=== PATIENT | male | born 1980 | race Caucasian/White ===

== ENCOUNTER → 2019-07-08 | Emergency (ER) | payer SELFPAY ==
[~2019-07-08] VITALS: Ht 188 cm; Wt 109.1 kg
[~2019-07-08] MED LIST: CARDIZEM LA180 MG PO
[2019-07-08 23:49] VITALS: Ht 188 cm; Wt 109.1 kg
[2019-07-09 00:01] LABS: BASOPHILS 0.3 % (0-2); EOSINOPHILS 3.1 % (0-7); HEMOGLOBIN 14.5 g/dL (13.5-17.5); IMMATURE GRANULOCYTES 0.3 % (0-5); LYMPHOCYTES 39.6 % (15-50); MCH 30.6 pg (26.0-34.0); MCHC 34.5 g/dL (31.0-37.0); MCV 88.6 fL (80.0-100.0); MEAN PLATELET VOLUME 8.8 fL (7.4-10.4); MONOCYTES 8.9 % (2-11); NEUTROPHILS 47.8 % (40-80); PLATELET COUNT 316 10x3/uL (130-400); RBC 4.74 10x6/uL (4.20-6.10); RDW 12.6 % (11.5-14.5); WBC 6.5 10x3/uL (4.8-10.8)
[2019-07-09 00:13] LABS: APTT 29.6 SECONDS (22.8-39.4); INR 0.94 (0.85-1.17); PROTIME 12.1 SECONDS (11.6-15.0)
[2019-07-09 00:24] LABS: APPEARANCE CLEAR (CLEAR); BILIRUBIN NEGATIVE (NEGATIVE); COLOR YELLOW (YELLOW); GLUCOSE NEGATIVE (NEGATIVE); KETONE NEGATIVE (NEGATIVE); NITRITE NEGATIVE (NEGATIVE); PROTEIN NEGATIVE (NEGATIVE); UROBILINOGEN NORMAL (NORMAL)
[2019-07-09 00:25] LABS: ALBUMIN 3.8 g/dL (3.4-5.0); ALKALINE PHOSPHATASE 96 U/L (46-116); ALT (SGPT) 55 U/L (10-68); BILIRUBIN - TOTAL 0.22 mg/dL (0.2-1.3); CALC OSMOLALITY 280 mosm/kg (275-300); CALCIUM 9.4 mg/dL (8.5-10.1); CHLORIDE - SERUM 102 mmol/L (98-107); CKMB 6.3 U/L (0.0-3.6); CREATINE KINASE 277 UL (21-232); CREATININE - SERUM 1.2 mg/dL (0.6-1.3); GLUCOSE 107 mg/dL (74-106); MAGNESIUM - SERUM 2.1 mg/dL (1.8-2.4); POTASSIUM - SERUM 3.7 mmol/L (3.5-5.1); PROTEIN - SERUM 7.9 g/dL (6.4-8.2); SODIUM 139 mmol/L (136-145); TROPONIN-I < 0.017 ng/mL (0.000-0.060); UREA NITROGEN 20 mg/dL (7-18); eGFR NON AFRICAN AMERICAN 71 mL/min (90-120)
[2019-07-09 00:37] LABS: UDS - AMPHET POSITIVE QUAL (NEGATIVE); UDS - BARB NEGATIVE QUAL (NEGATIVE); UDS - BENZO NEGATIVE QUAL (NEGATIVE); UDS - COCAINE NEGATIVE QUAL (NEGATIVE); UDS - OPIATE NEGATIVE QUAL (NEGATIVE); UDS - PCP NEGATIVE QUAL (NEGATIVE); UDS - THC NEGATIVE QUAL (NEGATIVE)
[2019-07-09 00:40] LABS: T4 THYROXIN - FREE 1.08 ng/dL (0.76-1.46); T4 THYROXINE 7.6 ug/dL (4.7-13.3)
[2019-07-09 03:52] LABS: CKMB 5.6 U/L (0.0-3.6); CREATINE KINASE 269 UL (21-232); TROPONIN-I < 0.017 ng/mL (0.000-0.060)
[2019-07-09 04:34] VITALS: BP 136/73
== END | disposition home or self-care (01) ==
LOC: D.ER 23:44
PROVIDERS: Emergency Medicine
DX: F15.90 Other stimulant use, unspecified, uncomplicated (principal); R00.0 Tachycardia, unspecified

== ENCOUNTER 2019-10-26 12:11 | Observation (INO) | payer SELFPAY ==
[2019-10-26] VITALS (8 sets, daily range): BP systolic 83–139; BP diastolic 60–75; Ht 188 cm; Wt 109.5 kg
[~2019-10-26] VITALS: Ht 188 cm; Wt 109.5 kg
--- NOTE | ~2019-10-26 | EC ---
PATIENT:GENO MIRZA DATE OF SERVICE: 10/26/19 SEX: M MEDICAL RECORD: [id number] DATE OF : [birth year] LOCATION:D.M2 D.212 AGE OF PATIENT: 38 ADMISSION DATE: 10/26/19 REFERRING PHYSICIAN: INTERPRETING PHYSICIAN: FRED LAINEZ MD ECHOCARDIOGRAM REPORT ECHO CHARGES 4 ECHO COMPLETE Date: 10/27/19 CLINICAL DIAGNOSIS: CP, Q WAVE WAS NOTED ON EKG, METH USE ECHOCARDIOGRAPHIC MEASUREMENTS (adult normal given) AC root (d.<3.7cm) 2.9 cm LV Septum d (<1.2 cm> 0.8 cm Valve Excursion 1.6 cm LV Septum (systole) 1.2 cm Left Atria (s.<4.0cm> 3.5 cm LVPW d(<1.2cm) 1.1 cm RV (d.<2.3cm) 2.6 cm LVPW (sytole) 1.3 cm LV diastole(<5.6CM) 4.9 cm MV E-F(>70mm/sec) cm LV systole 3.5 cm LVOT Diameter 2.1 cm MV exc.(>10mm) cm Est.ejection fraction (50-75%) % DOPPLER: LVIT cm/sec A 109 cm/sec E 87 cm/sec LA cm/sec RVSP 26.7 mmHg LVOT 125 cm/sec AOP1/2T m/s Asc. Ao 122 cm/sec RVOT 65 cm/sec RA cm/sec PA 90 cm/sec AV Gradient Peak 6.0 mmHg AV Mean 2.7 mmHg AV Area 3.2 cm MV Gradient Peak 6.1 mmHg MV Mean 3.5 mmHg MV Area cm COMMENTS: Correctional Program Specialist: Rachel AGEE Warehouse Distribution Specialist: 3 Dr. Hewitt TAPE# PACS Pericardial Effusion N DATE OF SERVICE: Adequate 2D, color flow and spectral Doppler, and M-Mode. No LVH. LV internal dimension is normal. Wall motion is normal. EF is greater than or equal to 55%. Aortic valve is tricuspid. No evidence of stenosis by Doppler interrogation. Left atrium is normal. Mitral valve shows no prolapse. Trivial MR. Right-sided chambers are grossly normal. Trivial TR. TRANSINT:[id number] Voice Confirmation ID: [id number] DOCUMENT ID: [id number] ECHOCARDIOGRAM REPORT [id number] GENO MIRZA GREGORY A MD CC: [id number] DICTATION DATE: 10/30/19 1349 OPERATOR COMMAND SUPPORT SYSTEMS: 10/30/19 193 DIS IN 10/27/19 [id number] [place] [address]
[2019-10-26 12:57] LABS: HEMATOCRIT 49.3 % (42.0-54.0); HEMOGLOBIN 16.2 g/dL (13.5-17.5); MCH 30.2 pg (26.0-34.0); MCHC 32.9 g/dL (31.0-37.0); MCV 91.8 fL (80.0-100.0); MEAN PLATELET VOLUME 9.7 fL (7.4-10.4); RBC 5.37 10x6/uL (4.20-6.10); RDW 12.7 % (11.5-14.5); WBC 2.7 10x3/uL (4.8-10.8)
[2019-10-26 13:04] LABS: PLATELET COUNT 225 10x3/uL (130-400)
[2019-10-26 13:07] LABS: APTT 25.2 SECONDS (22.8-39.4); INR 0.95 (0.85-1.17); PROTIME 12.6 SECONDS (11.6-15.0)
[2019-10-26 13:12] LABS: CALC OSMOLALITY 269 mosm/kg (275-300); CARBON DIOXIDE 26.1 mmol/L (21.0-32.0); CHLORIDE - SERUM 99 mmol/L (98-107); CREATININE - SERUM 1.5 mg/dL (0.6-1.3); GLUCOSE 116 mg/dL (74-106); POTASSIUM - SERUM 3.8 mmol/L (3.5-5.1); SODIUM 135 mmol/L (136-145); UREA NITROGEN 11 mg/dL (7-18); eGFR NON AFRICAN AMERICAN 55 mL/min (90-120)
[2019-10-26 13:26] LABS: ALKALINE PHOSPHATASE 121 U/L (30-120); ALT (SGPT) 75 U/L (10-68); BILIRUBIN - TOTAL 1.18 mg/dL (0.2-1.3); CKMB 0.7 U/L (0.0-3.6); CREATINE KINASE 104 UL (21-232); MAGNESIUM - SERUM 1.6 mg/dL (1.8-2.4); PROTEIN - SERUM 7.7 g/dL (6.4-8.2); TROPONIN-I < 0.017 ng/mL (0.000-0.060)
[2019-10-26 13:33] LABS: LYMPHOCYTES 13 % (15-50); NEUTROPHILS 87 % (40-80); PLATELET ESTIMATE NORMAL; TEAR DROP CELLS OCC
--- NOTE | 2019-10-26 16:45 | NUR ---
TRANSFER FROM ER BY W/C. LUZ MARINAINTED TO ROOM. CALL LIGHT IN REACH. WILL CONT. PLAN OF CARE.
[2019-10-26 19:13] LABS: UDS - AMPHET POSITIVE QUAL (NEGATIVE); UDS - BARB NEGATIVE QUAL (NEGATIVE); UDS - BENZO NEGATIVE QUAL (NEGATIVE); UDS - COCAINE NEGATIVE QUAL (NEGATIVE); UDS - OPIATE POSITIVE QUAL (NEGATIVE); UDS - PCP NEGATIVE QUAL (NEGATIVE); UDS - THC POSITIVE QUAL (NEGATIVE)
[2019-10-27] VITALS: BP 103/70
[2019-10-27 01:48] LABS: BASOPHILS 0.1 % (0-2); EOSINOPHILS 0.3 % (0-7); HEMATOCRIT 42.5 % (42.0-54.0); IMMATURE GRANULOCYTES 0.1 % (0-5); LYMPHOCYTES 7.2 % (15-50); MCH 30.1 pg (26.0-34.0); MCHC 32.9 g/dL (31.0-37.0); MCV 91.4 fL (80.0-100.0); MEAN PLATELET VOLUME 9.2 fL (7.4-10.4); MONOCYTES 8.2 % (2-11); NEUTROPHILS 84.1 % (40-80); PLATELET COUNT 196 10x3/uL (130-400); RBC 4.65 10x6/uL (4.20-6.10); RDW 12.9 % (11.5-14.5)
[2019-10-27 02:03] LABS: ALBUMIN 3.1 g/dL (3.4-5.0); ALKALINE PHOSPHATASE 110 U/L (30-120); ALT (SGPT) 96 U/L (10-68); BILIRUBIN - TOTAL 1.28 mg/dL (0.2-1.3); CALC OSMOLALITY 275 mosm/kg (275-300); CALCIUM 8.4 mg/dL (8.5-10.1); CARBON DIOXIDE 31.8 mmol/L (21.0-32.0); CHLORIDE - SERUM 103 mmol/L (98-107); CREATININE - SERUM 1.4 mg/dL (0.6-1.3); GLUCOSE 144 mg/dL (74-106); MAGNESIUM - SERUM 2.4 mg/dL (1.8-2.4); POTASSIUM - SERUM 3.9 mmol/L (3.5-5.1); PROTEIN - SERUM 6.4 g/dL (6.4-8.2); SODIUM 137 mmol/L (136-145); TROPONIN-I < 0.017 ng/mL (0.000-0.060); UREA NITROGEN 11 mg/dL (7-18); eGFR NON AFRICAN AMERICAN 60 mL/min (90-120)
[2019-10-27 04:00] VITALS: BP 126/80
--- NOTE | 2019-10-27 07:15 | NUR ---
RECEIVED PT IN BED AAOX4 RESP UNLABORED SKIN W/D COLOR WNL DENIES ANY PAIN OR NEEDS AT THIS TIME
[2019-10-27 09:00] VITALS: BP 125/83
[2019-10-27 12:00] VITALS: BP 135/77
--- NOTE | 2019-10-27 12:35 | NUR ---
RESTING QUIETLY NAD NOTED
--- NOTE | 2019-10-27 14:08 | MORECARE ---
CASE MANAGEMENT DISCHARGE SUMMARY PATIENT: GENO MIRZA UNIT: [id number] ADM DATE: 10/26/19 AGE: 38 : 76 SEX: M ROOM/BED: D.2122 AUTHOR: LUIZA CEVALLOS PHYSICIAN: REFERRING PHYSICIAN: WINDY LEZAMA MD DATE OF SERVICE: 10/27/19 Discharge Plan Patient Name[facility] [facility] 1980 Planned Disposition: Home Anticipated Discharge Date: 10/27/19 Discharge Date: Expected LOS: 1 Initial Reviewer: [email or web address] Initial Review Date: 10/27/2019 Generated: 10/27/19 3:08 pm Patient Name: GENO MIRZA Page [id number] at 1408 All edits/amendments must be made on the electronic document DICTATION DATE: 10/27/19 1408 INSTRUCTOR DANCING: SURAJ 10/27/19 1408 RPT#: [id number] DC DATE: STATUS: ADM IN [facility] [address] [place] [address] END OF REPORT
--- NOTE | 2019-10-27 18:00 | NUR ---
REVIEWED DISCHARGE INSTRUCTIONS WITH PT STATES UNDERSTANDING COPY GIVEN DCD SALINE LOCK TO RAC WITH IV CATHETER INTACT SITE FREE OF REDNESS OR EDEMA PT DISCHARGED HOME IN STABLE CONDITION VIA W/C ESCORTED BY STAFF WITH ALL PERSONAL BELONGINGS
== END 2019-10-27 18:00 | disposition home or self-care (01) ==
LOC: D.ER 12:11 → D.M2 14:52 → OBSVTIME 15:48 → D.M2 10-27 18:00
PROVIDERS: Family Medicine; ADMIT Family Medicine; ATTEND Family Medicine
DX: I20.0 Unstable angina (principal); R00.0 Tachycardia, unspecified; F15.10 Other stimulant abuse, uncomplicated; R94.31 Abnormal electrocardiogram [ECG] [EKG]; I95.9 Hypotension, unspecified; F12.10 Cannabis abuse, uncomplicated; Z72.89 Other problems related to lifestyle; N17.9 Acute kidney failure, unspecified; D69.6 Thrombocytopenia, unspecified; R74.0 Nonspecific elevation of levels of transaminase and lactic acid dehydrogenase [LDH]